=== PATIENT | female | born 1960 | race African-American/Black ===

== ENCOUNTER 2018-05-29 10:17 | Emergency (ER) | payer OTHER ==
[~2018-05-29] VITALS: Ht 160 cm; Wt 65.8 kg
[~2018-05-29 10:17] MED LIST: ALBU0.084 NEB; ALBU1SYP PO; SERDISK IN
[2018-05-29 10:44] VITALS: BP 110/74
[2018-05-29] MEDS ORDERED: KETOROLAC TROMETH 60MG/2ML VIAL IM ONE (11:15)
[2018-05-29 11:36] LABS: Urine Bacteria FEW /hpf (None Seen); Urine Blood Negative /uL (Negative); Urine Specific Gravity 1.017 (1.001-1.035); Urine WBC 3 /hpf (0 - 5)
== END 2018-05-29 12:16 | disposition home or self-care (01) ==
LOC: ER 10:17
DX: K09.1 Developmental (nonodontogenic) cysts of oral region (principal); N39.0 Urinary tract infection, site not specified; F17.210 Nicotine dependence, cigarettes, uncomplicated; J45.909 Unspecified asthma, uncomplicated; Z90.710 Acquired absence of both cervix and uterus; Z88.0 Allergy status to penicillin; Z88.1 Allergy status to other antibiotic agents; Z79.899 Other long term (current) drug therapy
CPT/HCPCS: 70486; 81001; 96372; 99284; J1885

== ENCOUNTER 2018-10-29 11:56 | Emergency (ER) | payer OTHER ==
[~2018-10-29] VITALS: Ht 160 cm; Wt 64.4 kg
[2018-10-29 12:41] VITALS: BP 118/73
== END 2018-10-29 13:24 | disposition home or self-care (01) ==
LOC: ER 11:56
DX: R22.0 Localized swelling, mass and lump, head (principal); F17.210 Nicotine dependence, cigarettes, uncomplicated; J45.909 Unspecified asthma, uncomplicated; Z88.1 Allergy status to other antibiotic agents; Z88.5 Allergy status to narcotic agent; Z88.0 Allergy status to penicillin; Z79.899 Other long term (current) drug therapy; Z90.710 Acquired absence of both cervix and uterus; Z48.01 Encounter for change or removal of surgical wound dressing